=== PATIENT | female | born 1970 | race Two or more races ===

== ENCOUNTER 2024-08-30 23:16 | Emergency (ER) | payer MEDICAID ==
[~2024-08-30] VITALS: Ht 157.5 cm; Wt 66.3 kg
[2024-08-30 23:28] VITALS: BP 138/94; PULSE 98; RESP 18; TEMP 98.9; O2SAT 96
[2024-08-31] MEDS ORDERED: CLINDAMYCIN 300MG IV 50 ML IV ONE (00:30)
[2024-08-31] MEDS ORDERED: KETOROLAC TROMETH 30 MG/ML 1ML VIAL IV ONE (00:30)
[2024-08-31] MEDS ORDERED: traMADol HCL 50 MG TAB PO ONE (00:30)
[2024-08-31] MEDS ORDERED: SODIUM CHLORIDE 0.9% 1,000 ML IV ONE (00:30)
[2024-08-31] MEDS ORDERED: ACETAMINOPHEN 500 MG TAB or CAP PO ONE (00:30)
[2024-08-31 01:09] LABS: Basophils # (auto) 0 10 ^3/uL (0-0.2); Basophils % (auto) 0.4 % (0.0-2.0); Eosinophils # (auto) 0.1 10 ^3/uL (0-0.8); Eosinophils % (auto) 0.7 % (0.0-7.0); Hematocrit 43.8 % (36.0-46.0); Hemoglobin 15.3 g/dL (12.2-16.2); Lymphocytes # (auto) 3.1 10 ^3/uL (0.4-5.4); Lymphocytes % (auto) 32.3 % (10.0-50.0); Mean Corpuscular Hemoglobin 29.7 pg (28.0-32.0); Monocytes # (auto) 0.6 10 ^3/uL (0-1.3); Monocytes % (auto) 6.4 % (0.0-12.0); Neutrophils # (auto) 5.7 10 ^3/uL (1.6-8.6); Neutrophils % (auto) 60.2 % (37.0-80.0); Platelet Count (auto) 282 10^3/uL (140-450); Red Blood Cells 5.15 10^6/uL (4.0-5.20); Red Cell Distribution Width 13.9 % (11.8-14.3); White Blood Cell 9.4 10^3/uL (4.4-10.8)
[2024-08-31 01:20] LABS: Potassium 4.4 mmol/L (3.5-5.1)
[2024-08-31 01:21] LABS: Anion Gap 10 (5-15); Carbon Dioxide 27 mmol/L (20-31)
[2024-08-31 01:27] LABS: Blood Urea Nitrogen 16 mg/dL (9-23); Chloride 94 mmol/L (98-107); Glucose 325 mg/dL (74-106); Sodium 131 mmol/L (136-145)
--- NOTE | 2024-08-31 01:34 | ED.PDOC ---
History of Present Illness HPI Comments 53 y/o F, with a history of DM, presents with 3x day history of left-upper lip abscess. Patient reports noticing abscess via increasing pronounced swelling to her left upper lip, with associated utptuxyn-nl-ponak sensation discharge, for over the past 3 days. Also endorses on having chills. Denies any recent known injuries, sick contact, or bug bite. Denies having any fever, nausea, vomiting, numbness, tingling, or further associated symptoms or modifying factors. Chief Complaint: Abscess Time Seen by MD: 00:20 Reviewed Notes: Nurses Notes, Medications, Allergies Allergies: Coded Allergies: NO KNOWN ALLERGIES (Unverified , 08/30/24) Information Source: Patient Mode of Arrival: Ambulatory Severity: Moderate Timing: Days Duration: Since onset Prehospital treatment: None Review of Systems: REVIEW OF SYSTEMS: No fever, no chills, or fatigue HEENT: No sore throat, no earache, no congestion, no neck pain. Cardiac: No chest pain. No palpitations. Lungs: No shortness of breath, no cough. GI: No nausea, no vomiting, no diarrhea, no constipation, no abdominal pain : No dysuria, frequency, or urgency. No hematuria. Musculoskeletal: No joint pain , no joint swelling, no extremity edema. Skin: Abscess to left upper lip, with a associated discharge. No rash, no itching. Neuro: No headache, no dizziness, no weakness Vital Signs Vital Signs Date Time Temp Pulse Resp B/P (MAP) Pulse Ox O2 Delivery O2 Flow Rate FiO2 08/30/24 23:28 98.9 98 18 138/94 (109) 96 98.9 Physical Exam General: Awake, alert and oriented. No acute distress. Skin: Skin in warm, dry and intact without rashes or lesions. HEENT: Left upper lip swelling with purulent material in inner lip. No other facial swelling erythema. No posterior pharyngeal erythema or edema. The head is normocephalic and atraumatic. Conjunctivae are clear without exudates or hemorrhage. Sclera is non-icteric. Neck: Normal range of motion. No JVD. Cardiac: Regular rate Respiratory: No signs of respiratory distress. No Stridor. Extremities: Upper and lower extremities are atraumatic in appearance without deformity. Neurological: The patient is awake, alert and oriented to person, place, and time with normal speech. Speech is clear. There is no facial asymmetry. Psychiatric: Appropriate mood and affect. Good judgement and insight. Past Medical History PAST MEDICAL HISTORY: DM Surgical History: Denies all surgeries [employer] History: Denies all [employer] Hx Family History Family History: Unknown Social History Smoker: Non-Smoker Alcohol: Denies ETOH Use Drugs: Denies Drug Use Lives In: Home Was a procedure done? Was a procedure done?: No Differential Dx Considerations may include: Dermatitis, cellulitis, abscess, insect envenomation, among others X-Ray, Labs, Meds, VS Vital Signs Date Time Temp Pulse Resp B/P (MAP) Pulse Ox O2 Delivery O2 Flow Rate FiO2 08/30/24 23:28 98.9 98 18 138/94 (109) 96 98.9 Lab Test 08/31/24 00:45 Range/Units White Blood Count 9.4 4.4-10.8 10^3/uL Red Blood Count 5.15 4.0-5.20 10^6/uL Hemoglobin 15.3 12.2-16.2 g/dL Hematocrit 43.8 36.0-46.0 % Mean Corpuscular Volume 85.0 80.0-100.0 fL Mean Corpuscular Hemoglobin 29.7 28.0-32.0 pg Mean Corpuscular Hemoglobin Concent 35.0 32.0-36.0 g/dL Red Cell Distribution Width 13.9 11.8-14.3 % Platelet Count 282 140-450 10^3/uL Mean Platelet Volume 7.9 6.9-10.8 fL Neutrophils (%) (Auto) 60.2 37.0-80.0 % Lymphocytes (%) (Auto) 32.3 10.0-50.0 % Monocytes (%) (Auto) 6.4 0.0-12.0 % Eosinophils (%) (Auto) 0.7 0.0-7.0 % Basophils (%) (Auto) 0.4 0.0-2.0 % Neutrophils # (Auto) 5.7 1.6-8.6 10 ^3/uL Lymphocytes # (Auto) 3.1 0.4-5.4 10 ^3/uL Monocytes # (Auto) 0.6 0-1.3 10 ^3/uL Eosinophils # (Auto) 0.1 0-0.8 10 ^3/uL Basophils # (Auto) 0 0-0.2 10 ^3/uL Nucleated Red Blood Cells 0.0 % Sodium Level 131 L 136-145 mmol/L Potassium Level 4.4 3.5-5.1 mmol/L Chloride Level 94 L 98-107 mmol/L Carbon Dioxide Level 27 20-31 mmol/L Anion Gap 10 5-15 Blood Urea Nitrogen 16 9-23 mg/dL Creatinine 0.94 0.550-1.02 mg/dL Glomerular Filtration Rate Calc 73 >90 mL/min BUN/Creatinine Ratio 17.0 10.0-20.0 Serum Glucose 325 H 74-106 mg/dL Calcium Level 10.0 8.7-10.4 mg/dL Time of 1ST Reevaluation: 00:50 Reevaluation 1ST: Unchanged Patient Education/Counseling: Need For Follow Up Family Education/Counseling: No Family Present Departure 1 Departure Time of Disposition: 02:46 Impression: Primary Impression: Cellulitis Additional Impression: Hyperglycemia Disposition: 01 HOME / SELF CARE / HOMELESS Condition: Stable Additional Instructions: ED DISCHARGE INSTRUCTIONS Instructions: Please read all instructions provided in this packet carefully. It is very important that you take your medication for diabetes every day as prescribed. High blood sugar can cause infections. He antibiotics as prescribed. If you notice infection is getting worse over the past 1-2 days return to the emergency department for further treatment. May need more IV antibiotics. Although you have been discharged from the Emergency Department, this does not mean that you have a "clean bill of health". No definitive diagnosis for your symptoms has been made today. It is possible that you are in the process of developing a serious illness. This is why you must return to the ED without fail if any new or worsening symptoms (especially if your symptoms include chest pain, trouble breathing, abdominal pain, fever, headache, confusion, trouble seeing, or trouble walking) It is also very important that you see a primary care doctor within the next 3 days to follow up. If you are unable to get an appointment, return to the ED for re-evaluation. Diabetes: Preventing High Blood Sugar Emergencies Introduction High blood sugar in diabetes occurs when the sugar (glucose) level in the blood rises above normal. It is also called hyperglycemia. When you have diabetes, high blood sugar may be caused by not getting enough insulin or missing your diabetes medicine. It may also be caused by eating too much food, skipping ex ercise, or being ill or stressed. Unlike low blood sugar, high blood sugar usually happens slowly over hours or days. Blood sugar levels above your target range may make you feel tired and thirsty. If your blood sugar keeps rising, your kidneys will make more urine and you can get dehydrated . Signs of dehydration include being thirstier than usual and having darker urine than usual. Without treatment, severe dehydration can be life-threatening. Over time, high blood sugar can damage the eyes, heart, kidne ys, blood vessels, and nerves. Watch for symptoms of high blood sugar. Symptoms include feeling very tired or thirsty and urinating more often than usual. As long as you notice the symptoms, you will probably have time to treat high blood sugar so that you can prevent an emergency. Three things can help you prevent high blood sugar problems: Test your blood sugar often, especially if you are sick or not following your normal routine. Testing lets you see when your blood sugar is above your target range, even if you don't have symptoms. Then you can treat it early. Call your doctor if you often have high blood sugar or your blood sugar is often above your target range. Your medicine may need to be adjusted or changed. Drink extra water or drinks that don't have caffeine or sugar to prevent dehydration. How do you prevent high blood sugar emergencies? Treat infections early Infections that aren't treated (such as urinary tract infections, pneumonia, and skin infections) can raise your risk for a high blood sugar emergency. Be prepared Know the symptoms of high blood sugar. They include feeling very thirsty, feeling very tired, and urinating more than usual. Post a list of the symptoms in a place where you can see it often, such as on your refrigerator door. Add any symptoms you have noticed that may not be on the list. Make sure other people know the symptoms. Teach them what to do in case of an emergency. Check your blood sugar at home often, especially if you are sick or not following your normal routine. If you don't have a blood sugar meter, talk with your doctor about getting one. It is easy to miss the early symptoms, especially if you urinate more than usual but aren't more thirsty. Testing your blood sugar at home will help you know when it is high, even if you don't notice symptoms. Teach others (at work and at home) the symptoms of high blood sugar. Teach them to call 911 if you are unconscious or too sick to check your own blood sugar. Wear medical identification. Have a medical alert bracelet or other form of medical jewelry with you at all times. This is very important in case you are too sick or injured to speak for yourself. You can find medical identification at a drugstore or on the Internet. If you take insulin, test for ketones, especially if your blood sugar is high. Make a plan. Usually people who take insulin need to take extra fast-acting insulin when their blood sugar levels are high. Talk with your doctor about how much to take. This depends on your blood sugar level (sliding scale). Take your medicines as prescribed. Don't skip diabetes medicine or insulin doses without first talking with your doctor. Treat high blood sugar early The best way to prevent high blood sugar emergencies is to treat high blood sugar as soon as you have symptoms or when your blood sugar is well above your target range (for example, 200 mg/dL or higher). Follow your doctor's instructions for the steps for dealing with high blood sugar. Post the steps in a handy place at home and work. Make sure other people know what to do if you are unable to treat high blood sugar. Keep a record of high blood sugar levels. Write down your symptoms and how you treated them. And take the record with you when you see your doctor. Call your doctor. Let your doctor know if you have high blood sugar problems. Your diabetes medicine may need to be adjusted or changed. If you take insulin, your dose of insulin may need to be increased. Drink plenty of liquids If your blood sugar levels are above your target range, drink extra liquids. Thi s helps replace the fluids lost through your urine. Water and sugar-free drinks are best. Avoid caffeinated drinks, alcohol, and soda pop. And avoid other drinks that have a lot of sugar, such as fruit juice. Cellulitis: Care Instructions Your Care Instructions Cellulitis is a skin infection caused by bacteria, most often strep or staph. It often occurs after a break in the skin from a scrape, cut, bite, or puncture, or after a rash. Cellulitis may be treated without doing tests to find out what caused it. But your doctor may do tests, if needed, to look for a specific bacteria, like methicillin-resistant Staphylococcus aureus (MRSA). The doctor has checked you carefully, but problems can develop later. If you notice any problems or new symptoms, get medical treatment right away. Follow-up care is a alex part of your treatment and safety. Be sure to make and go to all appointments, and call your doctor if you are having problems. It's also a good idea to know your test results and keep a list of the medicines you take. How can you care for yourself at home? Take your antibiotics as directed. Do not stop taking them just because you feel better. You need to take the full course of antibiotics. Prop up the infected area on pillows to reduce pain and swelling. Try to keep the area above the level of your heart as often as you can. If your doctor told you how to care for your wound, follow your doctor's instructions. If you did not get instructions, follow this general advice: Wash the wound with clean water 2 times a day. Don't use hydrogen peroxide or alcohol, which can slow healing. You may cover the wound with a thin layer of petroleum jelly, such as Vaseline, and a nonstick bandage. Apply more petroleum jelly and replace the bandage as needed. Be safe with medicines. Take pain medicines exactly as directed. If the doctor gave you a prescription medicine for pain, take it as prescribed. If you are not taking a prescription pain medicine, ask your doctor if you can take an xube-voe-fobmzem medicine. To prevent cellulitis in the future Try to prevent cuts, scrapes, or other injuries to your skin. Cellulitis most often occurs where there is a break in the skin. If you get a scrape, cut, mild burn, or bite, wash the wound with clean water as soon as you can to help avoid infection. Don't use hydrogen peroxide or alcohol, which can slow healing. If you have swelling in your legs (edema), support stockings and good skin care may help prevent leg sores and cellulitis. Take care of your feet, especially if you have diabetes or other conditions that increase the risk of infection. Wear shoes and socks. Do not go barefoot. If you have athlete's foot or other skin problems on your feet, talk to your doctor about how to treat them. When should you call for help? Call your doctor now or seek immediate medical care if: You have signs that your infection is getting worse, such as: Increased pain, swelling, warmth, or redness. Red streaks leading from the area. Pus draining from the area. A fever. You get a rash. Watch closely for changes in your health, and be sure to contact your doctor if: You do not get better as expected. Credits for Cellulitis: Care Instructions Current as of: March 24, 2024 Author: [employer] Staff Clinical Review Board All [employer] education is reviewed by a team that includes physicians, nurses, advanced practitioners, registered dieticians, and other healthcare professionals. e-Prescriptions Clindamycin Hcl (Clindamycin Hcl) 300 Mg Cap 1 CAP PO TID, #21 CAP Prov: LEVON VENTURA MD 08/31/24 Comments 53-year-old female with cellulitis of the left upper lip. In his well- appearing, nontoxic. There was no leukocytosis on CBC. Patient is afebrile. She was able to tolerate p.o.. Dose of IV antibiotics administered in the emergency department. Patient felt safe for discharge home to follow up with PCP. Advised to return to the ED with any new, worsening or concerning symptoms. Critical Care Note Critical Care Time?: No Stability Stability form required: No Heart Score Heart Score: Heart Score Response (Comments) Value History N/A 0 EKG N/A 0 Age N/A 0 Risk Factors N/A 0 Troponin N/A 0 Total 0 I personally scribed for LEVON VENTURA MD ([email or web address]) on 08/31/24 at 01:34. Electronically submitted by Thomas Cyr ([email or web address]). LEVON VENTURA MD August 31, 2024 01:34
[2024-08-31] MEDS ORDERED: CLIN1CAP70 PO (02:47)
== END 2024-08-31 03:05 | disposition home or self-care (01) ==
LOC: ER 23:16
DX: K13.0 Diseases of lips (principal); E11.65 Type 2 diabetes mellitus with hyperglycemia
CPT/HCPCS: 36415; 80048; 85025